=== PATIENT | female | born 1980 | race Caucasian/White ===

== ENCOUNTER 2017-09-28 15:11 | Emergency (ER) | payer SELFPAY ==
[~2017-09-28] VITALS: Ht 160 cm; Wt 90.0 kg
[2017-09-28 15:20] VITALS: BP 136/90; PULSE 117; RESP 20; TEMP 98.3
[2017-09-28] MEDS ORDERED: SODIUM CHLORIDE 0.9% FLUSH 10 ML FLUSH IVF PRN (15:45)
[2017-09-28] MEDS ORDERED: levETIRAcetam INJ 500 MG in SODIUM CHLORIDE 0.9% INJ 100 ML IV ONE (15:45)
--- NOTE | 2017-09-28 15:48 | PD ---
HPI Chief Complaint: Seizure Time Seen by Provider: 15:34 Travel History International Travel<30 days: No Contact w/Intl Traveler<30days: No Traveled to known affect area: No History of Present Illness HPI 36-year-old female brought in by EMS status post tonic-clonic seizure. Patient is currently postictal but alert and oriented 3. Patient denies injury of any kind. She states history of seizure approximately 1 year ago, with CT scan and emergency room workup. Patient was instructed to follow- up with neurology but did not secondary to insurance issues. She has not had seizures since according to her. She does not remember the seizure she had today. Patient is currently visiting here from [facility] with some friends. Patient is currently on amitriptyline, Ambien, and propranolol. She takes no medications for seizures, and never started previously. She denies headache, nausea, vomiting, or other symptoms. Patient plans to return to [facility] in the next several days. She has no known drug allergies. [facility] Past Medical History ?: Not LMP: 09/25/17 Social History Alcohol Use: Yes Tobacco Use: No Substance Use: No Allergies-Medications (Allergen,Severity, Reaction): Coded Allergies: No Known Allergies (Unverified , 09/28/17) Review of Systems Except as stated in HPI: all other systems reviewed are Neg General / Constitutional: No: Fever Eyes: No: Visual changes HENT: No: Headaches Cardiovascular: No: Chest Pain or Discomfort Respiratory: No: Shortness of Breath Gastrointestinal: No: Abdominal Pain Genitourinary: No: Dysuria Musculoskeletal: No: Pain Skin: No Rash Neurologic: Positive: Seizures (See history of present illness), No: Weakness, Dizziness, Syncope, Focal Abnormalities, Coordination Problem, Tremor, Ataxia, Headache, Change in Mentation, Slurred Speech, Paresthesia, Incontinence, Sensory Disturbance Psychiatric: No: Depression Endocrine: No: Polydipsia Hematologic/Lymphatic: No: Easy Bruising Physical Exam Narrative GENERAL: Patient appears somewhat postictal but is otherwise alert and oriented 3 and in no acute distress. SKIN: Warm and dry. Normal color. Normal turgor. No signs of trauma. HEAD: Atraumatic. Normocephalic. Nontender. EYES: Pupils equal and round. No scleral icterus. No injection or drainage. ENT: No nasal bleeding or discharge. Mucous membranes pink and moist. Pharynx is clear. Airways patent NECK: Trachea midline. Supple and nontender. CARDIOVASCULAR: Regular rate and rhythm. RESPIRATORY: No accessory muscle use. Clear to auscultation. Breath sounds equal bilaterally. GASTROINTESTINAL: Abdomen soft, non-tender, nondistended. Hepatic and splenic margins not palpable. MUSCULOSKELETAL: Extremities without clubbing, cyanosis, or edema. No obvious deformities. NEUROLOGICAL: Awake and alert. No obvious cranial nerve deficits. Motor grossly within normal limits. Five out of 5 muscle strength in the arms and legs. Normal speech. PSYCHIATRIC: Appropriate mood and affect; insight and judgment normal. Data Data Last Documented VS Vital Signs Date Time Temp Pulse Resp B/P (MAP) Pulse Ox O2 Delivery O2 Flow Rate FiO2 09/28/17 15:25 99 Room Air 09/28/17 15:20 98.3 117 20 136/90 (105) Orders Orders Complete Blood Count With Diff (09/28/17 15:41) Alcohol (Ethanol) (09/28/17 15:41) Drug Screen, Random Urine (09/28/17 15:41) Ecg Monitoring (09/28/17 15:41) Iv Access Insert/Monitor (09/28/17 15:41) Oximetry (09/28/17 15:41) Comprehensive Metabolic Panel (09/28/17 15:41) Sodium Chloride 0.9% Flush (Ns Flush) (09/28/17 15:45) Urinalysis - C+S If Indicated (09/28/17 15:41) Thyroid Stimulating Hormone (09/28/17 15:41) Levetiracetam Inj (Keppra Inj) (09/28/17 15:45) Ct Brain W/O Iv Contrast(Rout) (09/28/17 17:37) Magnesium (Mg) (09/28/17 17:37) Potassium Chloride (Kcl) (09/28/17 17:45) Calcium Carbonate (Oscal) (09/28/17 17:45) Labs Laboratory Tests Test 09/28/17 16:15 White Blood Count 7.5 TH/MM3 Red Blood Count 3.58 MIL/MM3 Hemoglobin 9.5 GM/DL Hematocrit 29.0 % Mean Corpuscular Volume 81.0 FL Mean Corpuscular Hemoglobin 26.5 PG Mean Corpuscular Hemoglobin Concent 32.8 % Red Cell Distribution Width 16.4 % Platelet Count 286 TH/MM3 Mean Platelet Volume 7.3 FL Neutrophils (%) (Auto) 57.1 % Lymphocytes (%) (Auto) 35.1 % Monocytes (%) (Auto) 3.2 % Eosinophils (%) (Auto) 4.1 % Basophils (%) (Auto) 0.5 % Neutrophils # (Auto) 4.3 TH/MM3 Lymphocytes # (Auto) 2.6 TH/MM3 Monocytes # (Auto) 0.2 TH/MM3 Eosinophils # (Auto) 0.3 TH/MM3 Basophils # (Auto) 0.0 TH/MM3 CBC Comment DIFF FINAL Differential Comment Blood Urea Nitrogen 8 MG/DL Creatinine 0.82 MG/DL Random Glucose 80 MG/DL Total Protein 6.4 GM/DL Albumin 3.1 GM/DL Calcium Level 7.4 MG/DL Alkaline Phosphatase 97 U/L Aspartate Amino Transf (AST/SGOT) 13 U/L Alanine Aminotransferase (ALT/SGPT) 15 U/L Total Bilirubin 0.1 MG/DL Sodium Level 141 MEQ/L Potassium Level 3.0 MEQ/L Chloride Level 108 MEQ/L Carbon Dioxide Level 23.0 MEQ/L Anion Gap 10 MEQ/L Estimat Glomerular Filtration Rate 79 ML/MIN Protein Corrected Calcium 7.8 MG/DL Magnesium Level 1.9 MG/DL Thyroid Stimulating Hormone 3rd Gen 2.760 uIU/ML Ethyl Alcohol Level LESS THAN 3 MG/DL MDM Medical Decision Making Medical Screen Exam Complete: Yes Emergency Medical Condition: Yes Differential Diagnosis Seizure. Postictal. Need for neurology workup. Narrative Course Patient is medically stable at time of exam Labs ordered including CBC, CMP, urinalysis, urine drug screen, serum alcohol, and TSH. IV access is obtained the patient is given 500 mg Keppra IV. I do not feel strongly about repeat CT scan as the patient had one 1 year ago without significant findings. This is not her first seizure. CBC comes back showing anemia with a hemoglobin of 9.5, hematocrit is 29.0. Patient is questioned regarding this and states she does have history of chronic anemia and is currently on her period. Chemistries are significant for sodium 141, potassium is 3.0, chloride is 108. Calcium is 7.4. Corrected calcium is 7.8. BUN/creatinine are normal. Albumin is low at 3.1. TSH is normal at 2.76. Serum alcohol is less than 3 Findings are discussed with Dr. Sahni who also sees the patient. Head CT is recommended. Magnesium is added to the CMP. Patient is given 1000 mg calcium p.o. Patient is given 40 mEq potassium p.o. Magnesium is normal at 1.9. CT scan shows no acute process per radiologist. Urinalysis is canceled. Patient is felt to be medically stable for discharge. Patient will be continued on Keppra 500 mg twice daily #60. Patient is to avoid alcohol or stimulants until seen by neurologist. Patient can return with recurrent seizure as needed. Diagnosis Primary Impression: Seizure Referrals: Neurologist Patient Instructions: Epilepsy (DC), General Instructions Additional Instructions: Patient is felt to be medically stable for discharge. Patient will be continued on Keppra 500 mg twice daily #60. Patient is to avoid alcohol or stimulants until seen by neurologist. Patient can return with recurrent seizure as needed. Med/Other Pt SpecificInfo: Prescription(s) given Disposition: DISCHARGE HOME Condition: Stable Betito Handy Sep 28, 2017 15:48
[2017-09-28 16:57] LABS: AUTOMATED NEUTROPHIL # 4.3 TH/MM3 (1.8-7.7); BASOPHIL % 0.5 % (0.0-2.0); EOSINOPHIL # 0.3 TH/MM3 (0-0.4); EOSINOPHIL % 4.1 % (0.0-4.0); HEMOGLOBIN 9.5 GM/DL (11.6-15.3); LYMPH % 35.1 % (9.0-44.0); LYMPHOCYTE # 2.6 TH/MM3 (1.0-4.8); MEAN CORPUSCULAR HEMOGLOBIN 26.5 PG (27.0-34.0); MEAN CORPUSCULAR HGB CONC 32.8 % (32.0-36.0); MEAN PLATELET VOLUME 7.3 FL (7.0-11.0); MONO % 3.2 % (0.0-8.0); MONOCYTE # 0.2 TH/MM3 (0-0.9); NEUT % 57.1 % (16.0-70.0); PLATELET COUNT 286 TH/MM3 (150-450); RED BLOOD COUNT 3.58 MIL/MM3 (4.00-5.30); RED CELL DISTRIBUTION WIDTH 16.4 % (11.6-17.2); WHITE BLOOD COUNT 7.5 TH/MM3 (4.0-11.0)
[2017-09-28 17:15] LABS: ALBUMIN 3.1 GM/DL (3.4-5.0); AST (GOT) 13 U/L (15-37); BLOOD UREA NITROGEN 8 MG/DL (7-18); CALCIUM 7.4 MG/DL (8.5-10.1); CHLORIDE 108 MEQ/L (98-107); CREATININE 0.82 MG/DL (0.50-1.00); GLOMERULAR FILTRATION RATE 79 ML/MIN (>89); GLUCOSE,RANDOM 80 MG/DL (74-106); SODIUM (NA) 141 MEQ/L (136-145)
[2017-09-28 17:16] LABS: ALT (GPT) 15 U/L (10-53)
[2017-09-28 17:29] LABS: ALKALINE PHOSPHATASE 97 U/L (45-117); CALCIUM-PROTEIN CORRECTED 7.8 MG/DL (8.5-10.1); TOTAL BILIRUBIN ADULT 0.1 MG/DL (0.2-1.0); TOTAL PROTEIN 6.4 GM/DL (6.4-8.2)
[2017-09-28] MEDS ORDERED: POTASSIUM CHLORIDE 20 MEQ CONTROLLED RELEASE TAB PO ONE (17:45)
[2017-09-28] MEDS ORDERED: CALCIUM CARBONATE 1.25 GM (CA 500 MG) TAB PO ONE (17:45)
[2017-09-28] MEDS ORDERED: LEVE500 PO (18:04)
--- NOTE | 2017-09-28 18:04 | RADRPT ---
EXAM DATE/TIME: 09/28/2017 17:45 [facility] COMPARISON: No previous studies available for comparison. INDICATIONS : Seizure today. RADIATION DOSE: 56.35 CTDIvol (mGy) MEDICAL HISTORY : Seizures. SURGICAL HISTORY : None. ENCOUNTER: Initial ACUITY: 1 day PAIN SCALE: 0/10 LOCATION: cranial TECHNIQUE: Multiple contiguous axial images were obtained of the head. Using automated exposure control and adj ustment of the mA and/or kV according to patient size, radiation dose was kept as low as reasonably a chievable to obtain optimal diagnostic quality images. DICOM format image data is available electro nically for review and comparison. FINDINGS: CEREBRUM: The ventricles are normal for age. No evidence of midline shift, mass lesion, hemorrhage or acute in farction. No extra-axial fluid collections are seen. POSTERIOR FOSSA: The cerebellum and brainstem are intact. The 4th ventricle is midline. The cerebellopontine angle i s unremarkable. EXTRACRANIAL: The visualized portion of the orbits is intact. SKULL: The calvaria is intact. No evidence of skull fracture. CONCLUSION: Normal examination. Wenceslao Rocha MD on September 28, 2017 at 17:59 Board Certified Radiologist. This report was verified electronically.
[2017-09-28] MEDS ORDERED: CYCL5TAB PO (18:08)
[2017-09-28] MEDS ORDERED: IBUP-232 PO (18:08)
[2017-09-28 18:13] VITALS: BP 127/83
[2017-09-28] MEDS ORDERED: traMADol HCL 50 MG TAB PO ONE (18:15)
[2017-09-28] MEDS ORDERED: CYCLOBENZAPRINE HCL 10 MG TAB PO ONE (18:15)
== END 2017-09-28 18:46 | disposition home or self-care (01) ==
LOC: NEPD 15:11
DX: R56.9 Unspecified convulsions (principal); D64.9 Anemia, unspecified
CPT/HCPCS: 70450; 80053; 80307; 83735; 84443; 85025; 96365; 99284; J1953